=== PATIENT | female | born 1995 | race Caucasian/White ===

== ENCOUNTER 2021-03-06 03:10 | Emergency (ER) | payer BC ==
[2021-03-06] MEDS ORDERED: diphenhydrAMINE 25 MG CAP ONE (03:37)
[2021-03-06] MEDS ORDERED: methylPREDNISolone Sod Succ/PF 125 MG/2 ML VIAL ONE (04:20)
[2021-03-06] MEDS ORDERED: Famotidine/PF 20 mg/2ml Vial ONE (05:38)
== END 2021-03-06 06:01 | disposition home or self-care (01) ==
LOC: ERS 03:10
DX: O99.712 Diseases of the skin and subcutaneous tissue complicating pregnancy, second trimester (principal); L50.0 Allergic urticaria; Z3A.17 17 weeks gestation of pregnancy
CPT/HCPCS: 96374; 96375; J2930; Q0163; S0028